=== PATIENT | male | born 1975 | race Hispanic/Latino ===

== ENCOUNTER 2021-03-30 18:21 | Emergency (ER) | payer OTHER ==
[2021-03-30 18:58] LABS: Absolute Lymphocytes (CBC) 4.1 K/uL (0.7-4.9); Basophils % 0.1 % (0-1.3); Hematocrit 41.2 % (39.6-49.0); Lymphocytes % 48.3 % (15.3-44.8); MPV 7.7 fL (7.6-11.3); RBC Red Blood Cell Count 4.63 M/uL (4.33-5.43)
[2021-03-30] MEDS ORDERED: NA CHLORIDE 0.9% 1,000 ML ONE (19:06)
[2021-03-30] MEDS ORDERED: ONDANSETRON 4 MG/2 ML VIAL ONE (19:06)
[2021-03-30] MEDS ORDERED: MORPHINE 4 MG/ML SYR ONE (19:06)
[2021-03-30 19:10] LABS: Potassium 3.6 mmol/L (3.5-5.1)
[2021-03-30 19:13] LABS: Protime INR 1.04
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
[2021-03-30] MEDS ORDERED: HYDROMORPHONE HCL 1 MG/ML INJ ONE (19:53)
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
[2021-03-30 20:39] VITALS: TEMP 97.9; O2SAT 100
[2021-03-30 20:40] VITALS: BP 120/82
== END 2021-03-30 20:34 | disposition short-term general hospital (02) ==
LOC: ER 18:21
PROC: 2W3LX1Z Immobilization of Right Lower Extremity using Splint (ICD-10-PCS; principal; 2021-03-30)
DX: S82.251A Displaced comminuted fracture of shaft of right tibia, initial encounter for closed fracture (principal); S82.451A Displaced comminuted fracture of shaft of right fibula, initial encounter for closed fracture; V28.0XXA Motorcycle driver injured in noncollision transport accident in nontraffic accident, initial encounter
CPT/HCPCS: 29505; 96361; 85025; 80048; 36415; 86900; 86850; 85610; 86901; 73552; 73590; 96375; 96374; 99285; J1170; J7030; J2405